=== PATIENT | female | born 1990 | race African-American/Black ===

== ENCOUNTER 2017-03-05 18:59 | Emergency (ER) | payer OTHER ==
[~2017-03-05 18:59] MED LIST: TRAM50TA PO
[2017-03-05 19:22] VITALS: BP 117/59
[2017-03-05] MEDS ORDERED: DICL50TA2 PO (20:35)
[2017-03-05] MEDS ORDERED: ACET-704 PO (20:35)
--- NOTE | 2017-03-05 20:35 | PHYS DOC ---
Past Medical History Past Medical History: No Pertinent History Past Surgical History: No Surgical History Additional Past Surgical Histo: right foot. Alcohol Use: Occasionally Drug Use: None Adult General Chief Complaint Chief Complaint: KNEE INJURY HPI HPI Patient is a 26 year old female who presents is 6 out of 10 right lateral knee pain that began when she stood up from sitting position. She states she heard a pop sound from the knee and her knee twisted. Review of Systems Review of Systems Constitutional: Denies fever or chills [] Eyes: Denies change in visual acuity, redness, or eye pain [] Musculoskeletal: Right knee pain Integument: Denies rash or skin lesions [] Neurologic: Denies headache, focal weakness or sensory changes [] Endocrine: Denies polyuria or polydipsia [] Allergies Allergies Allergies Coded Allergies Type Severity Reaction Last Updated Verified No Known Drug Allergies 12/17/15 No Physical Exam Physical Exam Constitutional: Well developed, well nourished, no acute distress, non-toxic appearance. [] HENT: Normocephalic, atraumatic, bilateral external ears normal, oropharynx moist, no oral exudates, nose normal. [] Skin: Warm, dry, no erythema, no rash. [] Back: No tenderness, no CVA tenderness. [] Extremities: Right knee with small amount of soft tissue swelling on the anterior aspect. Tenderness on palpation of medial and lateral knee. Patient unable to flex the knee. Limited range of motion to the knee due to pain. +2 pedal pulse. Cap refill less than 2 seconds the right lower extremity. Sensation intact to the right lower extremity. Neurologic: Alert and oriented X 3, normal motor function, normal sensory function, no focal deficits noted. [] Psychologic: Affect normal, judgement normal, mood normal. [] Current Patient Data Vital Signs Vital Signs Date Time Temp Pulse Resp B/P (MAP) Pulse Ox O2 Delivery O2 Flow Rate FiO2 03/05/17 19:22 98.6 69 20 98 Room Air 98.6 Lab Values Laboratory Tests Test 03/05/17 18:57 POC Urine HCG, Qualitative Hcg negative (Negative) EKG EKG [] Radiology/Procedures Radiology/Procedures [] Course & Med Decision Making Course & Med Decision Making Pertinent Labs and Imaging studies reviewed. (See chart for details) Patient is in the ED with right knee pain that began when she stood up from sitting position and heard a pop sound from the knee. She was placed in an immobilizing the ED by the ED RN, neurovascular exam done by me post- immobilizer application is normal, cap refill less than 2 seconds. Provided crutches. Ice elevation encouraged. Follow-up with Ortho in one week if pain continues. Dragon Disclaimer Dragon Disclaimer This electronic medical record was generated, in whole or in part, using a voice recognition dictation system. Departure Departure Impression: Primary Impression: Right knee sprain Disposition: HOME, SELF-CARE Condition: STABLE Referrals: UNKNOWN PCP NAME (PCP) KEYONA CARMONA MD Follow-up in one week Patient Instructions: Knee Sprain Additional Instructions: You were seen for right knee sprain. Ice and elevate the extremity. Wear the immobilizer as tolerated. Follow-up with orthopedic doctor in a week if pain continues. Scripts Acetaminophen With Codeine (TYLENOL WITH CODEINE #3 TABLET) 1 Each Tablet 1 TAB PO PRN Q6HRS Y for PAIN, #30 TAB Prov: CLIFTON HENRIQUEZ APRN 03/05/17 Diclofenac Potassium (DICLOFENAC POTASSIUM) 50 Mg Tablet 1 TAB PO BID, #60 TAB Prov: CLIFTON HENRIQUEZ APRN 03/05/17 Problem Qualifiers Primary Impression: Right knee sprain Encounter type: initial encounter Involved ligament of knee: unspecified ligament Qualified Codes: S83.91XA - Sprain of unspecified site of right knee , initial encounter CLIFTON HENRIQUEZ APRN Mar 05, 2017 20:35
--- NOTE | 2017-03-06 08:25 | RAD ---
Indication fall, pain. AP oblique and lateral views of the right knee were obtained. No bony abnormality is seen
== END 2017-03-05 21:10 | disposition home or self-care (01) ==
LOC: ER 18:59
DX: S83.91XA Sprain of unspecified site of right knee, initial encounter (principal); X58.XXXA Exposure to other specified factors, initial encounter; Y93.89 Activity, other specified; Y92.89 Other specified places as the place of occurrence of the external cause; Y99.8 Other external cause status
CPT/HCPCS: 29505; 73562; 81025; 99284-25

== ENCOUNTER 2017-04-14 01:35 | Emergency (ER) | payer OTHER ==
[~2017-04-14] VITALS: Ht 180.3 cm; Wt 99.3 kg
[~2017-04-14 01:35] MED LIST changes: +ACET-704 PO; +DICL50TA2 PO
[2017-04-14 01:45] VITALS: BP 115/65
[2017-04-14] MEDS ORDERED: OXYC-323 PO (02:08)
--- NOTE | 2017-04-14 02:08 | PHYS DOC ---
Past Medical History Past Medical History: No Pertinent History Past Surgical History: Other Additional Past Surgical Histo: right foot. Alcohol Use: Occasionally Drug Use: None Adult General Chief Complaint Chief Complaint: KNEE INJURY HPI HPI Patient is a 26 year old female presenting to the emergency department for evaluation of right knee pain that has been going on for over a month. Says the pain started after squatting down and she felt a pop in her right knee and she has continued have pain over the past month and is hurting more over the past several days after another twisting mechanism injury. She now has swelling and effusion and says that the naproxen and Tylenol threes are not helping her pain. She says she saw her primary care provider and they said to give it more time to heal. There is no orthopedic referral or MRI ordered. Review of Systems Review of Systems Constitutional: Denies fever or chills [] Musculoskeletal: Denies back pain. + R knee joint pain [] Neurologic: Denies headache, focal weakness or sensory changes [] Allergies Allergies Allergies Coded Allergies Type Severity Reaction Last Updated Verified No Known Drug Allergies 12/17/15 No Physical Exam Physical Exam Constitutional: Well developed, well nourished, no acute distress, non-toxic appearance. [] Skin: Warm, dry, no erythema, no rash. [] Extremities: Right knee with moderate sized effusion. As pain on anterior and posterior drawer test and has pain with Steven's as well. Joint is not Lax and feels stable with intact distal neurovascular exam. Neurologic: Alert and oriented X 3, normal motor function, normal sensory function, no focal deficits noted. [] Current Patient Data Vital Signs Vital Signs Date Time Temp Pulse Resp B/P (MAP) Pulse Ox O2 Delivery O2 Flow Rate FiO2 04/14/17 01:45 98.2 85 16 99 Room Air 98.2 EKG EKG [] Radiology/Procedures Radiology/Procedures [] Course & Med Decision Making Course & Med Decision Making There is no signs or symptoms of septic joint cellulitis vascular injury DVT. Patient likely has a partial or full ligamentous tear. Difficult to know which ligamentous injury given she hurts diffusely in her knee. I will refer her to orthopedics and recommended she try and follow with her PCP and get an MRI ordered. I told her to stay off of it for now and recommended rice NSAIDs. Patient aware and agreeable with plan and verbalized understanding of the above instructions. Dragon Disclaimer Dragon Disclaimer This electronic medical record was generated, in whole or in part, using a voice recognition dictation system. Departure Departure Impression: Primary Impression: Right knee sprain Additional Impression: Effusion, right knee Disposition: HOME, SELF-CARE Condition: GOOD Referrals: UNKNOWN PCP NAME (PCP) YANELIS VILLALOBOS MD Patient Instructions: Knee Effusion Additional Instructions: TAKE 400MG OF IBUPROFEN OR THE NAPROXEN EVERY 6 HOURS AND THE PERCOCET FOR BREAKTHROUGH PAIN. STAY OFF OF YOUR KNEE IF IT IS TOO PAINFUL. THANK YOU! Scripts Oxycodone/Apap 5-325 (PERCOCET 5-325 MG TABLET) 1 Each Tablet 1 TAB PO PRN Q6HRS Y for PAIN, #20 TAB 0 Refills Prov: ASHLEE BARRIENTOS DO 04/14/17 Problem Qualifiers ASHLEE BARRIENTOS DO Apr 14, 2017 02:08
== END 2017-04-14 02:23 | disposition home or self-care (01) ==
LOC: ER 01:35
DX: S83.91XA Sprain of unspecified site of right knee, initial encounter (principal); X58.XXXA Exposure to other specified factors, initial encounter; Y93.89 Activity, other specified; Y92.89 Other specified places as the place of occurrence of the external cause; Y99.8 Other external cause status
CPT/HCPCS: 99283

== ENCOUNTER → 2017-05-01 | Outpatient (CLI) | payer OTHER ==
[2017-04-14 01:45] VITALS: BP 115/65
[~2017-05-01] MED LIST changes: +OXYC-323 PO
--- NOTE | 2017-05-01 16:39 | RAD ---
MRI right knee without contrast dated 05/01/2017 3:30 PM Indication: Knee pain , pain is lateral and posterior. Injury 2 months ago. Pain Comparison: No comparison is available. Technique: Routine multiplanar multisequence imaging performed. No contrast administered. Findings: Bone marrow signal is homogeneous. No marrow edema. Articular cartilage is intact. No osteochondral defect. Small suprapatellar joint effusion. No intra-articular loose body. Small popliteal cyst. Anterior cruciate and posterior cruciate ligaments are intact. Medial and lateral collateral complexes are intact. Iliotibial band, popliteus tendon and pes anserine complex within normal limits. Quadriceps and patellar tendon are intact. No abnormality of medial or lateral retinaculum. Both menisci are normal in morphology and signal. No articular surface tear or perimeniscal cyst. IMPRESSION: 1. No evidence of internal derangement. 2. Small joint effusion and small popliteal cyst. Electronically signed by: Ariel Larson MD (05/01/2017 4:36 PM) [id number]
== END | disposition home or self-care (01) ==
LOC: MRI 15:25
PROVIDERS: ATTEND Family Medicine
DX: M23.91 Unspecified internal derangement of right knee (principal); M25.461 Effusion, right knee; M71.21 Synovial cyst of popliteal space [Baker], right knee
CPT/HCPCS: 73721